=== PATIENT | female | born 1995 | race Caucasian/White ===

== ENCOUNTER 2023-10-21 01:34 | Emergency (ER) | payer BC, SELFPAY ==
--- NOTE | 2023-10-21 04:27 | DOWNTIME ---
There was a [employer] Downtime on 10/21/2023 from 0111 to 10/21/2023 at 0405. Downtime documentation of patient's care, including medication administrations, has been reconciled in the electronic record per guidelines. Refer to the
patient's paper chart under the miscellaneous tab to see printed paper medication records and downtime forms.
[2023-10-21 04:35] VITALS: BP 107/73
[2023-10-21 05:09] LABS: Covid-19 RAPID by NAA Negative (Negative)
== END 2023-10-21 04:45 | disposition home or self-care (01) ==
LOC: EMR 01:34
PROVIDERS: EMERGENCY PHYSICIAN Clinical Nurse Specialist Family Health
DX: J02.0 Streptococcal pharyngitis (principal); Z11.52 Encounter for screening for COVID-19
CPT/HCPCS: 99284; 96374; 96375; 96372; 87070; 87147; 87502; 87635; 87880; J0561